=== PATIENT | female | born 1985 | race Caucasian/White ===

== ENCOUNTER 2016-11-01 10:18 | Outpatient (CLI) | payer MEDICAID | END 2016-11-01 10:19 | disposition home or self-care (01) | DX: M79.652 Pain in left thigh (principal); M79.651 Pain in right thigh ==

== ENCOUNTER 2016-12-17 09:41 | Outpatient (CLI) | payer MEDICAID | END 2016-12-17 09:42 | disposition home or self-care (01) | DX: M79.652 Pain in left thigh (principal) ==

== ENCOUNTER 2017-06-03 09:17 | Outpatient (CLI) | payer MEDICAID ==
[2017-06-03 12:55] LABS: ALBUMIN/GLOBULIN RATIO 1.8 (1.0-2.2); BILIRUBIN,TOTAL < 0.2 mg/dL (0.2-1.0); BUN - BLOOD UREA NITROGEN 5 mg/dL (6-20); CARBON DIOXIDE - CO2 26 mmol/L (21-32); CHLORIDE 105 mmol/L (101-111); CREATININE 0.8 mg/dL (0.4-1.0); GFR - MDRD 82 (>89); GLUCOSE 106 mg/dL (70-100); POTASSIUM 3.4 mmol/L (3.5-5.0); SODIUM 138 mmol/L (135-145); TOTAL PROTEIN 6.9 g/dL (6.7-8.2)
[2017-06-03 13:03] LABS: BASOPHILS % (AUTO) 0.8 %; EOSINOPHILS # (AUTO) 0.2 10^3/uL (0.0-0.7); HCT - HEMATOCRIT 41.9 % (37.0-47.0); LYMPHOCYTES # (AUTO) 0.5 10^3/uL (1.5-3.5); MEAN CORPUSCULAR HEMOGLOBIN 29.9 pg (27.0-31.0); MEAN CORPUSCULAR HGB CONC 33.4 g/dL (32.0-36.0); MEAN CORPUSCULAR VOLUME 89.7 fL (81.0-99.0); MEAN PLATELET VOLUME 9.6 fL (7.9-10.8); MONOCYTES # (AUTO) 0.2 10^3/uL (0.0-1.0); NEUTROPHILS # (AUTO) 2.3 10^3/uL (1.5-6.6); NEUTROPHILS % (AUTO) 71.2 %; NUCLEATED RED BLOOD CELLS AUTO 0.1 /100WBC; RED BLOOD COUNT 4.67 10^6/uL (4.20-5.40); RED CELL DISTRIBUTION WIDTH 13.8 % (12.0-15.0); UNCORRECTED WHITE BLOOD COUNT 3.2 x10^3/uL; WHITE BLOOD COUNT 3.2 x10^3/uL (4.8-10.8)
[2017-06-03 14:17] LABS: PLATELET MORPHOLOGY 1+ GIANT PLATELETS (NORMAL)
[2017-06-03 14:18] LABS: PLATELET ESTIMATE, MANUAL NORMAL (130-450,000) (NORMAL); WBC MORPHOLOGY (MULTIPLE) NORMAL APPEARANCE (NORMAL)
== END 2017-06-03 09:18 | disposition home or self-care (01) ==
LOC: LAB.N 09:17
PROVIDERS: ATTEND Physician Assistant
DX: F17.210 Nicotine dependence, cigarettes, uncomplicated (principal); G35 Multiple sclerosis
CPT/HCPCS: 36415; 80053; 84443; 85025

== ENCOUNTER 2017-09-13 11:48 | Outpatient (CLI) | payer MEDICAID ==
--- NOTE | 2017-09-13 14:37 | XRAY Report ---
COMPLETE LUMBAR SPINE: 09/13/2017 CLINICAL INDICATION: Back pain. FINDINGS: AP, lateral, oblique, and coned down views of the lumbar spine demonstrate normal height a nd alignment of the vertebral bodies. The disk spaces are preserved. There is no evidence of fracture or subluxation. Surgical clips from previous cholecystectomy are noted. IMPRESSION: NORMAL LUMBAR SPINE. JOB #: [id number] EXT JOB #:[id number]
== END 2017-09-13 11:49 | disposition home or self-care (01) ==
LOC: DI.N 11:48
PROVIDERS: ATTEND Family Medicine
DX: M54.5 Low back pain (principal)
CPT/HCPCS: 72110

== ENCOUNTER 2021-01-23 13:25 | Outpatient (CLI) | payer MEDICARE, MEDICAID ==
--- NOTE | 2021-01-23 13:56 | XRAY Report ---
PROCEDURE: Finger(s) LT INDICATIONS: CONTUSION OF L RING FINGER WITHOUT DAMAGE TO THE NAIL TECHNIQUE: AP hand, 2 views of the fourth finger(s) acquired. COMPARISON: None FINDINGS: Bones: Tiny avulsion fracture involving the lateral aspect of fourth middle phalangeal base is seen. No other fracture or dislocation. No suspicious bony lesions. Soft tissues: No suspicious soft tissue calcifications. IMPRESSION: Suggestion of small avulsion fracture involving lateral aspect of fourth middle phalangeal base. Reviewed by: Marcelo Vieyra MD on 01/23/2021 1:54 PM PDT Approved by: Marcelo Vieyra MD on 01/23/2021 1:54 PM PDT Station ID: [id number]
== END 2021-01-23 23:59 | disposition home or self-care (01) ==
LOC: DI.N 13:25
PROVIDERS: ATTEND Nurse Practitioner
DX: S60.042A Contusion of left ring finger without damage to nail, initial encounter (principal)